=== PATIENT | male | born 1960 | race African-American/Black ===

== ENCOUNTER 2018-01-14 13:49 | Emergency (ER) | payer BC ==
--- NOTE | 2018-01-14 14:03 | ED Physician Documentation ---
General Adult - HISTORIAN Historian: patient - HPI Stated Complaint: rash/poison jeannie Chief Complaint: Skin Rash Additional Information: Patient was exposed to poison jeannie 4 days ago. Is now developing a rash to his arms and facial area that is itching a lot. Is developing some vesiculations tot he facial area. Has had a lot of trouble with poison jeannie in the past. He does know what it looks like. Got into it while trimming bushes. Onset: days ago (Saturday) Timing: still present, worse - ROS CONST: no problems. denies: fever, chills - PAST HX Past History: none Other History: none Surgeries/Procedures: other (partial amputation right index) Allergies/Adverse Reactions: Allergies Allergy/AdvReac Type Severity Reaction Status Date / Time No Known Allergies Allergy Verified 01/14/18 13:58 Home Medications: Ambulatory Orders Medication Instructions Recorded NK 01/14/18 - SOCIAL HX Smoking History: non-smoker Alcohol Use: rarely Drug Use: none - FAMILY HX Family History: No - VITAL SIGNS Vital Signs: Vital Signs Temp Pulse Resp BP Pulse Ox 97.5 F L 68 16 139/88 98 01/14/18 13:59 01/14/18 13:59 01/14/18 13:59 01/14/18 13:59 01/14/18 13:59 - REVIEWED ASSESSMENTS Nursing Assessment Reviewed: Yes Vitals Reviewed: Yes General Adult Physical Exam - PHYSICAL EXAM GENERAL APPEARANCE: no distress EENT: eye inspection normal, ENT inspection normal, pharynx normal NECK: normal inspection, thyroid normal, supple RESPIRATORY: no resp distress, chest non-tender, breath sounds normal. No: wheezes, rales, rhonchi CVS: reg rate & rhythm, heart sounds normal, equal pulses SKIN: warm/dry, normal color, other (streaking area of vesiculation, erythema to the forehead area. Scattered erythematous lesions tot he neck, upper back and bilateral arms. ) NEURO: oriented X3, CN's nml as tested, motor nml, sensation nml, mood/affect nml, cognition normal Discharge Clincal Impression: Poison jeannie dermatitis Referrals: Primary Doctor,No [Primary Care Provider] - 2 Days Additional Instructions: Make sure you wash clothes that you were wearing when you were exposed. Bathe with lukewarm water. Watch for any secondary infections that might develop. Condition: Stable Decision to Admit: NO Date of Decison to Admit: 01/14/18 Decision Time: 14:17
[2018-01-14 14:08] VITALS: BP 139/88
[2018-01-14] MEDS ORDERED: methylPREDNISolone ACETATE 80 MG/ML VIAL IM ONE ×2 (14:10→14:13)
[2018-01-14] MEDS ORDERED: DEXAMETHASONE SOD PHOS 4 MG/ML VIAL IM ONE (14:11)
[2018-01-14] MEDS ORDERED: DEXAMETHASONE SOD PHOS 4 MG/ML VIAL ONE (14:12)
== END 2018-01-14 14:20 | disposition home or self-care (01) ==
LOC: ED 13:49
DX: L23.7 Allergic contact dermatitis due to plants, except food (principal)
CPT/HCPCS: J1040; J1100; 96372